=== PATIENT | female | born 1995 ===

== ENCOUNTER 2017-08-07 19:41 | Emergency (ER) | payer OTHER ==
[~2017-08-07] VITALS: Ht 167.6 cm; Wt 105.5 kg
[2017-08-07 19:43] VITALS: BP 143/76
[2017-08-07] MEDS ORDERED: [UNRECOGNIZED DRUG - OTHER] PO (19:59)
[2017-08-07] MEDS ORDERED: AMOXICILLIN 8751 TAB PO (20:02)
[2017-08-07 20:17] VITALS: PULSE 74; TEMP 98.2
== END 2017-08-07 20:18 | disposition home or self-care (01) ==
LOC: COL.ER 19:41
DX: L05.91 Pilonidal cyst without abscess (principal); E11.9 Type 2 diabetes mellitus without complications